=== PATIENT | female | born 1955 | race Caucasian/White ===

== ENCOUNTER 2021-07-15 10:37 | Emergency (ER) | payer SELFPAY ==
--- NOTE | 2021-07-15 11:31 | RAD REPORT ---
EXAM DESCRIPTION: USExtrem Venous W Compress Bil07/15/2021 11:24 am CLINICAL HISTORY: Leg swelling COMPARISON: none FINDINGS: The common femoral, superficial femoral, popliteal and posterior tibial veins bilaterally are compressible and demonstrate augmentation. Doppler demonstrates good flow. Grayscale, color and spectral analysis performed on all vessels IMPRESSION: No evidence of deep venous thrombosis involving either lower extremity.
--- NOTE | 2021-07-15 12:42 | ER ---
Nurse's Notes [facility] Name: Armando Camp Age: 65 yrs Sex: Female : 1955 Arrival Date: 07/15/2021 Time: 10:40 Bed 20 Private MD: Diagnosis: Edema, unspecified-Dependent edema Presentation: 07/15 10:52 Chief complaint: Patient states: "noticed JOAN leg swelling and redness for months" JOAN vg1 legs appears red, taut, and swollen. Coronavirus screen: Vaccine status: Patient reports receiving the 1st dose of the Covid vaccine. Client denies travel out of the [place] in the last 14 days. Ebola Screen: Patient denies exposure to infectious person. Patient denies travel to an Ebola-affected area in the 21 days before illness onset. Initial Sepsis Screen: Does the patient meet any 2 criteria? No. Patient's initial sepsis screen is negative. Does the patient have a suspected source of infection? No. Patient's initial sepsis screen is negative. Risk Assessment: Do you want to hurt yourself or someone else? Patient reports no desire to harm self or others. Onset of symptoms was April 2021. 10:52 Method Of Arrival: Ambulatory vg1 10:52 Acuity: DAVID 3 vg1 Triage Assessment: 10:57 General: Appears uncomfortable, Behavior is calm, cooperative. Pain: Complains of pain vg1 in right leg and left leg. Derm: Musculoskeletal: Circulation, motion, and sensation intact. Historical: - Allergies: 10:57 Cefadroxil; vg1 - Home Meds: 10:57 Insulin: Regular Sub-Q [Active]; losartan oral [Active]; Synthroid Oral [Active]; vg1 rosuvastatin oral [Active]; Bumetanide Oral [Active]; Glimepiride Oral [Active]; Aspirin Oral [Active]; Janumet oral [Active]; gabapentin oral [Active]; - PMHx: 10:57 Hypertensive disorder; Diabetes mellitus; Neuropathy; Hypercholesterolemia; vg1 - Immunization history:: Client reports receiving the Kevin \\T\\ Kevin single-dose vaccine. - Social history:: Smoking status: Patient reports the use of cigarette tobacco products, smokes two packs cigarettes per day. Screenin:28 Abuse screen: Denies threats or abuse. Nutritional screening: No deficits noted. ll1 Tuberculosis screening: No symptoms or risk factors identified. 12:58 Fall Risk Total Ervin Fall Scale indicates No Risk (0-24 pts). ll1 Assessment: 11:26 Reassessment: No changes from previously documented assessment. Patient and/or family ll1 updated on plan of care and expected duration. Pain level reassessed. Patient is alert, oriented x 3, equal unlabored respirations, skin warm/dry/pink. 11:28 Musculoskeletal: Circulation, motion, and sensation intact. Capillary refill < 3 ll1 seconds, Swelling present in right leg and left leg. 12:06 Reassessment: No changes from previously documented assessment. Patient and/or family ll1 updated on plan of care and expected duration. Pain level reassessed. Patient is alert, oriented x 3, equal unlabored respirations, skin warm/dry/pink. 12:45 Reassessment: No changes from previously documented assessment. Patient and/or family ll1 updated on plan of care and expected duration. Pain level reassessed. Patient is alert, oriented x 3, equal unlabored respirations, skin warm/dry/pink. Vital Signs: 10:52 BP 101 / 74; Pulse 66; Resp 18; Temp 98.5(TE); Pulse Ox 97% on R/A; Weight 104.33 kg; vg1 Height 5 ft. 9 in. (175.26 cm); Pain 5/10; 12:05 BP 102 / 47; Pulse 55; Resp 17; Pulse Ox 97% ; ll1 10:52 Body Mass Index 33.96 (104.33 kg, 175.26 cm) vg1 ED Course: 10:40 Patient arrived in ED. ds1 10:54 Shahbaz Schroeder NP is PHCP. pm1 10:54 Parker Trujillo MD is Attending Physician. pm1 10:57 Triage completed. vg1 10:57 Arm band placed on. vg1 11:20 Yogi Lora, MAXIMILIAN is Primary Nurse. ll1 11:26 Extrem Venous W Compression Joan US In Process Unspecified. EDMS 11:26 Patient placed in an exam room, on a stretcher. ll1 11:29 Patient has correct armband on for positive identification. Bed in low position. Call ll1 light in reach. Side rails up X 1. Cardiac monitoring not applicable on this patient. 12:45 No provider procedures requiring assistance completed. Patient did not have IV access ll1 during this emergency room visit. Administered Medications: No medications were administered Outcome: 12:42 Discharge ordered by MD. pm1 12:45 Patient left the ED. ll1 12:45 Discharged to home ambulatory. ll1 12:45 Condition: stable 12:45 Discharge instructions given to patient, Instructed on discharge instructions, follow up and referral plans. Demonstrated understanding of instructions, follow-up care. Signatures: Dispatcher [employer] [facility] Nadia Franco ds1 Shahbaz Schroeder NP MANGLE ROLLER pm1 Dyan Viveros, RN RN vg1 Yogi Lora RN RN ll1 Corrections: (The following items were deleted from the chart) 11:28 11:28 Musculoskeletal: Circulation, motion, and sensation intact. Capillary refill < 3 ll1 seconds, ll1
--- NOTE | 2021-07-15 12:42 | EDPHYS ---
Physician Documentation [facility] Name: Armando Camp Age: 65 yrs Sex: Female : 1955 Arrival Date: 07/15/2021 Time: 10:40 Bed 20 Private MD: ED Physician Parker Trujillo HPI: 07/15 11:04 This 65 yrs old Female presents to ER via Ambulatory with complaints of Leg Pain. pm1 11:04 The patient presents with pain, swelling. The complaints affect the right leg and left pm1 leg. Context: resulted from an unknown cause, the patient can fully bear weight, the patient is able to ambulate, can ambulate using a cane. Onset: The symptoms/episode began/occurred 5 month(s) ago. Modifying factors: The symptoms are alleviated by elevating leg, diuretics. Associated signs and symptoms: Pertinent negatives calf tenderness, fever. Treatment prior to arrival includes: no previous treatment. Severity of symptoms: in the emergency department the symptoms have improved. The patient has experienced similar episodes in the past, chronically, has been evaluated by PCP and referred to vascular for further evaluation and treatment. Vascular informed her 1 year ago that she has intermittent claudication that currently does not require intervention. The patient has not recently seen a physician. Historical: - Allergies: 10:57 Cefadroxil; vg1 - Home Meds: 10:57 Insulin: Regular Sub-Q [Active]; losartan oral [Active]; Synthroid Oral [Active]; vg1 rosuvastatin oral [Active]; Bumetanide Oral [Active]; Glimepiride Oral [Active]; Aspirin Oral [Active]; Janumet oral [Active]; gabapentin oral [Active]; - PMHx: 10:57 Hypertensive disorder; Diabetes mellitus; Neuropathy; Hypercholesterolemia; vg1 - Immunization history:: Client reports receiving the Kevin \T\ Kevin single-dose vaccine. - Social history:: Smoking status: Patient reports the use of cigarette tobacco products, smokes two packs cigarettes per day. ROS: 11:04 Constitutional: Negative for fever, chills, and weight loss, Cardiovascular: Negative pm1 for chest pain, palpitations, and edema, Respiratory: Negative for shortness of breath, cough, wheezing, and pleuritic chest pain, Skin: Negative for injury, rash, and discoloration. 11:04 MS/extremity: Positive for pain, swelling, of the right leg and left leg. 11:04 All other systems are negative. Exam: 11:04 Constitutional: This is a well developed, well nourished patient who is awake, alert, pm1 and in no acute distress. Head/Face: Normocephalic, atraumatic. 11:04 Cardiovascular: Exam negative for acute changes, Rate: normal, Rhythm: regular, Pulses: no pulse deficits are appreciated, Edema: 2+ edema to level of bilateral lower extremities below the knees. 11:04 Skin: Appearance: swelling, noted on the bilateral lower extremites below the knees, abscess, not appreciated, cellulitis, is not appreciated. 11:04 Neuro: Exam negative for acute changes, Orientation: is normal, Mentation: is normal, Motor: is normal, moves all fours. Vital Signs: 10:52 BP 101 / 74; Pulse 66; Resp 18; Temp 98.5(TE); Pulse Ox 97% on R/A; Weight 104.33 kg; vg1 Height 5 ft. 9 in. (175.26 cm); Pain 5/10; 12:05 BP 102 / 47; Pulse 55; Resp 17; Pulse Ox 97% ; ll1 10:52 Body Mass Index 33.96 (104.33 kg, 175.26 cm) vg1 MDM: 11:04 Patient medically screened. pm1 12:39 Data reviewed: vital signs. Data interpreted: Pulse oximetry: on room air is 97 %. pm1 Interpretation: normal. Counseling: I had a detailed discussion with the patient and/or guardian regarding: the historical points, exam findings, and any diagnostic results supporting the discharge/admit diagnosis, radiology results, the need for outpatient follow up, to return to the emergency department if symptoms worsen or persist or if there are any questions or concerns that arise at home. 12:40 ED course: Discussed lab work to rule out the presence of cellulitis but the patient pm1 refused. Patient's redness to legs has been present for 5-6 months and has been evaluated by her PCP who referred her to vascular surgery. Patient reports her redness and swelling have improved since yesterday. Patient is a smoker and I recommended smoking cessation. Patient appears to be developing lymphedema and has compression stockings but does not use them. Patient is taking diuretics and I recommend that she follow up with vascular surgery as recommended. 07/15 10:55 Order name: Extrem Venous W Compression [place] US; Complete Time: 11:38 pm1 Administered Medications: No medications were administered Disposition: 18:48 Co-signature as Attending Physician, Parker Trujillo MD. rn Disposition Summary: 07/15/21 12:42 Discharge Ordered Location: Home pm1 Problem: new pm1 Symptoms: have improved pm1 Condition: Stable pm1 Diagnosis - Edema, unspecified - Dependent edema pm1 Followup: pm1 - With: Emergency Department - When: As needed - Reason: Worsening of condition Followup: pm1 - With: Private Physician - When: 2 - 3 days - Reason: Recheck today's complaints, Continuance of care, Re-evaluation by your physician Discharge Instructions: - Discharge Summary Sheet pm1 - Peripheral Edema pm1 - Smoking Tobacco Information, Adult pm1 Forms: - Medication Reconciliation Form pm1 - Thank You Letter pm1 - Antibiotic Education pm1 - Prescription Opioid Use pm1 Signatures: Dispatcher [employer] EDMS Parker Trujillo MD MD rn Marinas, Patrick, NP TONGER pm1 Dyan Viveros, RN RN vg1
[2021-07-15 12:56] VITALS: TEMP 98.5; O2SAT 97
[2021-07-15 12:57] VITALS: BP 102/47
== END 2021-07-15 12:45 | disposition home or self-care (01) ==
LOC: ER 10:37
DX: R60.9 Edema, unspecified (principal); M79.605 Pain in left leg; M79.604 Pain in right leg; E11.9 Type 2 diabetes mellitus without complications; I10 Essential (primary) hypertension; F17.210 Nicotine dependence, cigarettes, uncomplicated; Z79.82 Long term (current) use of aspirin; Z79.4 Long term (current) use of insulin
CPT/HCPCS: 93970; 99283

== ENCOUNTER 2024-03-23 16:15 | Emergency (ER) | payer MEDICARE ==
--- OUTSIDE RECORDS SUMMARY | 2024-03-23 16:18 | XMS REPORT | Continuity of Care Document ---
Author Name Unknown Address [address] [place] [address] [address] [place] [address] [facility] Address [address] [facility]. [address] [place] [address] Care Team Providers Care Firewood Cutter Name Role Phone Reji Rankin Attending Clinician [phone] Payers Payer Name Policy Type Policy Number Effective Date Expirati on Date Source [facility] (MEDICARE REPLACEMENT HMO) [id number] 2022 00:00:00 Medications Ordered Medication Name Filled Medication Name Start Date Stop Date Current Medication? Ordering Clinician Indication Dosage Frequency Signature (SIG) Comments Components Source cyclobenzap rine hcl 10 mg tablet cyclobenzap rine hcl 10 mg tablet Yes [facility] timolol maleate 0.25 % solution timolol maleate 0.25 % solution Yes [facility] VRAYLAR 3 MG CAPSULE VRAYLAR 3 MG CAPSULE Yes [facility] omeprazole [address] omeprazole [address] Yes [facility] clopidogrel bisulfate 75 mg tablet clopidogrel bisulfate 75 mg tablet Yes [facility] OZEMPIC (0.25 OR 0.5 MG/DOSE) 2 MG/3ML SOLN PEN INJ OZEMPIC (0.25 OR 0.5 MG/DOSE) 2 MG/3ML SOLN PEN INJ Yes [facility] UNITHROID 150 MCG TABLET UNITHROID 150 MCG TABLET Yes [facility] glimepiride 4 mg tablet glimepiride 4 mg tablet Yes [facility] bumetanide 2 mg tablet bumetanide 2 mg tablet Yes [facility] LANTUS SOLOSTAR 100 UNIT/ML SOLN PEN INJ LANTUS SOLOSTAR 100 UNIT/ML SOLN PEN INJ Yes [facility] losartan potassium-h ctz 100-12.5 mg tablet losartan potassium-h ctz 100-12.5 mg tablet Yes [facility] rosuvastati n calcium 10 mg tablet rosuvastati n calcium 10 mg tablet Yes [facility] gabapentin 800 mg tablet gabapentin 800 mg tablet Yes [facility] Encounters Start Date/Time End Date/Time Encounter Type Admission Type Attending Clinicians Care Facility Care Department Encounter ID Source 2024-02-19 16:00:00 2024-02-19 17:00:00 Annual D2Me Reji Rankin [id number] CLACXAWKEA U24 [facility] 2022-11-28 00:00:00 2022-11-28 00:00:00 Outpatient DMG DMG [id number] [facility] 2022-08-01 15:17:25 2022-08-01 15:17:[address] [facility] [id number] Warner Melo 2022-07-24 14:53:30 2022-07-24 14:53:30 Outpatient [facility] [id number] Warner Melo 2022-05-02 14:37:15 2022-05-02 14:37:15 Outpatient [facility] [id number] Warner Cecile Melo 2022-02-05 10:39:53 2022-02-05 10:39:53 Outpatient [facility] [id number] Warner Melo Results Test Description Test Time Test Comments Results Result Co mments Source COMPREHENSIVE METABOLIC [id number] 16:24:09* Test Item Value Reference Range Interpretation Comme nts GLUCOSE (test code = 2217) 214 MG/DL 70-99 H BUN (test code = 2208) 13 MG/DL 8-23 CREATININE (test code = 2214) 0.67 MG/DL 0.60-1.30 eGFR (2020 CKD-EPI) (test code = 19428) 98 ML/MIN/1.73 >60 CALC BUN/CREAT (test code = 2235) 19 RATIO 6-28 SODIUM (test code = 2231) 139 MEQ/L 133-146 POTASSIUM (test code = 2228) 4.2 MEQ/L 3.5-5.4 CHLORIDE (test code = 2215) 98 MEQ/L 95-107 CARBON DIOXIDE (test code = 6) 25 MEQ/L 19-31 CALCIUM (test code = 2208) 9.4 MG/DL 8.5-10.5 PROTEIN, TOTAL (test code = 2228) 6.7 G/DL 6.1-8.3 ALBUMIN (test code = 1) 3.9 G/DL 3.5-5.2 CALC GLOBULIN (test code = 0) 2.8 G/DL 1.9-3.7 CALC A/G RATIO (test code = 2233) 1.4 RATIO 1.0-2.6 BILIRUBIN, TOTAL (test code = 2206) 0.9 MG/DL See_Comment [Automated me ssage] The system which generated this result transmitted reference range: <=1.2. The reference range was not used to interpret this result as normal/abnormal. ALKALINE PHOSPHATASE (test code = 2203) 90 U/L 40-140 AST (test code = 2217) 18 U/L 9-40 ALT (test code = 2218) 14 U/L 5-40 LIPID [id number] 16:24:09* Test Item Value Reference Range Interpretation Comme nts CHOLESTEROL (test code = 0) 114 MG/DL <200 TRIGLYCERIDES (test code = 2232) 161 MG/DL <150 H HDL CHOLESTEROL (test code = 0) 30 MG/DL >39 L CALC LDL CHOL (test code = 2236) 60 MG/DL <100 NOTE: CALCULATED LDL IS BASED ON EMMIE-GUZMAN METHOD WHICHINCLUDES ADJUSTABLE TRIGLYCERIDE:VLDL CHOLESTEROL RATIO.THIS FACTOR VARIES BY MEASURED TRIGLYCERIDE AND NON-HDLCHOLESTEROL CONCENTRATIONS WITH INCREASED CALCULATED LDL SEENIN HIGHER TRIGLYCERIDE OR LOWER NON-HDL SPECIMENS. FOR MOREINFORMATION, SEE CLIENT ANNOUNCEMENT AT [email or web address] RISK RATIO LDL/HDL (test code = 2238) 2.00 RATIO <3.22 HEMOGLOBIN [id number] 03:14:22* Test Item Value Reference Range Interpretation Comme nts HEMOGLOBIN A1c (test code = 48029) 11.4 % 4.2-5.6 H [employer] GUIDELINES FOR HGB A1C: PREDIABETES/INCREASED RISK . . . . . . . 5.7-6.4% DIAGNOSIS OF DIABETES . . . . . . . . . >=6.5% WITH CONFIRMATION OR APPROPRIATE SYMPTOMS NOTE: ASSAY MAY BE AFFECTED BY HEMOGLOBINOPATHIES (SICKLE CELL ANEMIA, S-C DISEASE, OTHERS) OR ARTIFICIALLY LOWERED BY DECREASED RED CELL SURVIVAL (HEMOLYTIC ANEMIAS, BLOOD LOSS, ETC.). CONSIDER ALTERNATE TESTING OR LABORATORY CONSULTATION. CBC W/AUTO DIFF WITH [id number] 02:53:58* Test Item Value Reference Range Interpretation Comme nts WBC (test code = 1001) 8.1 K/UL 3.5-11.0 RBC (test code = 1002) 5.19 M/UL 3.80-5.40 HEMOGLOBIN (test code = 1003) 16.6 G/DL 11.5-15.5 H HEMATOCRIT (test code = 1004) 47.3 % 34.0-45.0 H MCV (test code = 1005) 91.1 fL 80.0-99.0 MCH (test code = 1006) 32.0 PG 25.0-33.0 MCHC (test code = 1007) 35.1 G/DL 31.0-36.0 RDW (test code = 1038) 12.2 % 11.5-15.0 NEUTROPHILS (test code = 1008) 63.8 % LYMPHOCYTES (test code = 1010) 26.2 % MONOCYTES (test code = 1011) 6.7 % EOSINOPHILS (test code = 1012) 2.6 % BASOPHILS (test code = 1013) 0.5 % IMMATURE GRANULOCYTES (test code = 1036) 0.2 % NUCLEATED RBCS (test code = 1065) 0.0 /100 WBC'S See_Comment [Automated message] The system which generated this result transmitted reference range: 0.0. The reference range was not used to interpret this result as normal/abnormal. PLATELET COUNT (test code = 1015) 212 K/UL 130-400 ABSOLUTE NEUTROPHILS (test code = 1066) 5.15 K/UL 1.50-7.50 ABSOLUTE LYMPHOCYTES (test code = 1067) 2.12 K/UL 1.00-4.00 ABSOLUTE MONOCYTES (test code = 1068) 0.54 K/UL 0.20-1.00 ABSOLUTE EOSINOPHILS (test code = 1040) 0.21 K/UL 0.00-0.50 ABSOLUTE BASOPHILS (test code = 1069) 0.04 K/UL 0.00-0.20 ABS IMMATURE GRANULOCYTES (test code = 1020) 0.02 K/UL 0.00-0.10 ABS NUCLEATED RBCS (test code = 89376) 0.00 K/UL 0.00-0.11 UNLESS OTHER GODINEZ INDICATED, ALL TESTING PERFORMED AT [facility] [address] [place] [address] FORM TAMPER: MARGARET DEL VALLE M.D. [place] NUMBER [id number] [facility] [place]. [id number] LIPID [id number] 06:06:33* Test Item Value Reference Range Interpretation Comme nts CHOLESTEROL (test code = 2210) 125 MG/DL <200 TRIGLYCERIDES (test code = 2232) 283 MG/DL <150 H HDL CHOLESTEROL (test code = 2220) 29 MG/DL >39 L CALC LDL CHOL (test code = 2237) 63 MG/DL <100 NOTE: CALCULATED LDL IS BASED ON EMMIE-GUZMAN METHOD WHICHINCLUDES ADJUSTABLE TRIGLYCERIDE:VLDL CHOLESTEROL RATIO.THIS FACTOR VARIES BY MEASURED TRIGLYCERIDE AND NON-HDLCHOLESTEROL CONCENTRATIONS WITH INCREASED CALCULATED LDL SEENIN HIGHER TRIGLYCERIDE OR LOWER NON-HDL SPECIMENS. FOR MOREINFORMATION, SEE CLIENT ANNOUNCEMENT AT [email or web address] /[email or web address] RISK RATIO LDL/HDL (test code = 2238) 2.17 RATIO <3.22 COMPREHENSIVE METABOLIC [id number] 06:06:33* Test Item Value Reference Range Interpretation Comme nts GLUCOSE (test code = 2217) 344 MG/DL 70-99 H BUN (test code = 2208) 14 MG/DL 8-23 CREATININE (test code = 2214) 0.85 MG/DL 0.60-1.30 eGFR (2020 CKD-EPI) (test code = 90205) 76 ML/MIN/1.73 >60 CALC BUN/CREAT (test code = 2235) 16 RATIO 6-28 SODIUM (test code = 223) 135 MEQ/L 133-146 POTASSIUM (test code = 2228) 4.6 MEQ/L 3.5-5.4 CHLORIDE (test code = 2215) 94 MEQ/L 95-107 L CARBON DIOXIDE (test code = 2206) 26 MEQ/L 19-31 CALCIUM (test code = 220) 9.7 MG/DL 8.5-10.5 PROTEIN, TOTAL (test code = 222) 7.0 G/DL 6.1-8.3 ALBUMIN (test code = 2201) 3.9 G/DL 3.5-5.2 CALC GLOBULIN (test code = 2240) 3.1 G/DL 1.9-3.7 CALC A/G RATIO (test code = 2234) 1.3 RATIO 1.0-2.6 BILIRUBIN, TOTAL (test code = 2207) 0.5 MG/DL See_Comment [Automated me ssage] The system which generated this result transmitted reference range: <=1.2. The reference range was not used to interpret this result as normal/abnormal. ALKALINE PHOSPHATASE (test code = 2204) 97 U/L 40-140 AST (test code = 2218) 14 U/L 9-40 ALT (test code = 2219) 11 U/L 5-40 [facility] has important pathology staff changes effective 05/14/2022. New pathology staff will provide uninterrupted, excellent patient care and clinical consultation. See URL: [email or web address]. UNLESS OTHERWISE INDICATED, ALL TESTING PERFORMED AT [facility] [address] [place] [address] CLIA: [id number], CAP: [id number] HEMOGLOBIN [id number] 06:00:22* Test Item Value Reference Range Interpretation Comme nts HEMOGLOBIN A1c (test code = 43204) 12.4 % 4.2-5.6 H [employer] GUIDELINES FOR HGB A1C: PREDIABETES/INCREASED RISK . . . . . . . 5.7-6.4% DIAGNOSIS OF DIABETES . . . . . . . . . >=6.5% WITH CONFIRMATION OR APPROPRIATE SYMPTOMS NOTE: ASSAY MAY BE AFFECTED BY HEMOGLOBINOPATHIES (SICKLE CELL ANEMIA, S-C DISEASE, OTHERS) OR ARTIFICIALLY LOWERED BY DECREASED RED CELL SURVIVAL (HEMOLYTIC ANEMIAS, BLOOD LOSS, ETC.). CONSIDER ALTERNATE TESTING OR LABORATORY CONSULTATION. CULTURE, [id number] 10:26:02SPECIMEN NUMBER: [id number] CULTURE, ROUTINE SPECIMEN NUMBER: [id number] SPECIMEN COMMENT: UND SOURCE: UNDEFINED REPORT STATUS: FINAL DIRECT GRAM STAIN: NO WBCs SEEN FEW GRAM POSITIVE COCCI RARE GRAM POSITIVE BACILLI ISOLATE NUMBER 1: ORGANISM: 08/30/2021 FEW GRAM NEGATIVE BACILLI IDENTIFICATION: 08/31/2021 ENTEROBACTER CLOACAE ISOLATE NUMBER 2: ORGANISM: 08/30/2021 FEW GRAM NEGATIVE BACILLI IDENTIFICATION: 09/02/2021 CELESTINOA MIKY E. CLOACAE P. MIKY A MOXICILLIN/CA RESISTANT >16/8 SENSITIVE <=8/4AMPICILLIN RESISTANT >16 SENSITIVE <=8CEFAZOLIN SENSITIVE <=2CIPROFLOXACIN INTERMED 2 SENSITIVE <=1LEVOFLOXACIN RESISTANT >4 SENSITIVE <=2PIP/TAZOBAC SENSITIVE <=16 SENSITIVE <=16TETRACYCLINE RESISTANT >8 SENSITIVE <=4TOBRAMYCIN SENSITIVE <=4 SENSITIVE <=4TRIMETH/SULFA SENSITIVE <=2/38 SENSITIVE <=2/38 NOTE: NUMBERS DISPLAYED REPRESENT MINIMUM INHIBITORY CONCENTRATION (RICHARD) WHICH IS EXPRESSED IN MCG/ML.UNLESS OTHERWISE INDICATED, ALL TESTING PERFORMED [facility] [employer] [address] [place] [address] FORM TAMPER: BRENDA INFANTE M.D. CLIA NUMBER [id number] [facility] [place]. [id number] 04:13:55* Test Item Value Reference Range Interpretation Comme [facility] HEMOGLOBIN A1c (test code = 23109) 10.4 % 4.2-5.6 H [employer] GUIDELINES FOR HGB A1C: PREDIABETES/INCREASED RISK . . . . . . . 5.7-6.4% DIAGNOSIS OF DIABETES . . . . . . . . . >=6.5% WITH CONFIRMATION OR APPROPRIATE SYMPTOMS NOTE: ASSAY MAY BE AFFECTED BY HEMOGLOBINOPATHIES (SICKLE CELL ANEMIA, S-C DISEASE, OTHERS) OR ARTIFICIALLY LOWERED BY DECREASED RED CELL SURVIVAL (HEMOLYTIC ANEMIAS, BLOOD LOSS, ETC.). CONSIDER ALTERNATE TESTING OR LABORATORY CONSULTATION. UNLESS OTHERWISE INDICATED, ALL TESTING PERFORMED [facility] [employer]. [address] [place] [address] FORM TAMPER: BRENDA INFANTE M.D. CLIA NUMBER [id number] [place]. [id number] COMPREHENSIVE METABOLIC [id number] 04:03:03* Test Item Value Reference Range Interpretation Comme nts GLUCOSE (test code = 2217) 380 MG/DL 70-99 H BUN (test code = 2208) 26 MG/DL 8-23 H CREATININE (test code = 2213) 0.94 MG/DL 0.60-1.30 eGFR (2020 CKD-EPI) (test code = ) 68 ML/MIN/1.73 >60 CALC BUN/CREAT (test code = 2234) 28 RATIO 6-28 SODIUM (test code = 2230) 136 MEQ/L 133-146 POTASSIUM (test code = 2227) 3.7 MEQ/L 3.5-5.4 CHLORIDE (test code = 2214) 93 MEQ/L 95-107 L CARBON DIOXIDE (test code = 2205) 31 MEQ/L 19-31 CALCIUM (test code = 2208) 9.4 MG/DL 8.5-10.5 PROTEIN, TOTAL (test code = 2228) 7.1 G/DL 6.1-8.3 ALBUMIN (test code = 2200) 4.0 G/DL 3.5-5.2 CALC GLOBULIN (test code = 2239) 3.1 G/DL 1.9-3.7 CALC A/G RATIO (test code = 2233) 1.3 RATIO 1.0-2.6 BILIRUBIN, TOTAL (test code = 2206) 0.4 MG/DL See_Comment [Automated me ssage] The system which generated this result transmitted reference range: <=1.2. The reference range was not used to interpret this result as normal/abnormal. ALKALINE PHOSPHATASE (test code = 2203) 108 U/L 40-140 AST (test code = 2217) 18 U/L 9-40 ALT (test code = 2218) 15 U/L 5-40 LIPID [id number] 04:03:03* Test Item Value Reference Range Interpretation Comme nts CHOLESTEROL (test code = 2209) 111 MG/DL <200 TRIGLYCERIDES (test code = 2232) 246 MG/DL <150 H HDL CHOLESTEROL (test code = 2220) 26 MG/DL >39 L CALC LDL CHOL (test code = 7) 54 MG/DL <100 NOTE: CALCULATED LDL IS BASED ON EMMIE-GUZMAN METHOD WHICHINCLUDES ADJUSTABLE TRIGLYCERIDE:VLDL CHOLESTEROL RATIO.THIS FACTOR VARIES BY MEASURED TRIGLYCERIDE AND NON-HDLCHOLESTEROL CONCENTRATIONS WITH INCREASED CALCULATED LDL SEENIN HIGHER TRIGLYCERIDE OR LOWER NON-HDL SPECIMENS. FOR MOREINFORMATION, SEE CLIENT ANNOUNCEMENT AT [email or web address] RISK RATIO LDL/HDL (test code = 2238) 2.08 RATIO <3.22 CBC W/AUTO DIFF WITH [id number] 03:11:01* Test Item Value Reference Range Interpretation Comme nts WBC (test code = 1001) 8.8 K/UL 3.5-11.0 RBC (test code = 1002) 5.11 M/UL 3.80-5.40 HEMOGLOBIN (test code = 1003) 16.4 G/DL 11.5-15.5 H HEMATOCRIT (test code = 1004) 46.7 % 34.0-45.0 H MCV (test code = 1005) 91.4 fL 80.0-99.0 MCH (test code = 1006) 32.1 PG 25.0-33.0 MCHC (test code = 1007) 35.1 G/DL 31.0-36.0 RDW (test code = 1038) 12.2 % 11.5-15.0 NEUTROPHILS (test code = 1008) 67.3 % LYMPHOCYTES (test code = 1010) 21.9 % MONOCYTES (test code = 1011) 6.8 % EOSINOPHILS (test code = 1012) 2.9 % BASOPHILS (test code = 1013) 0.8 % IMMATURE GRANULOCYTES (test code = 1036) 0.3 % NUCLEATED RBCS (test code = 1065) 0.0 /100 WBC'S See_Comment [Automated [employer]] The system which generated this result transmitted reference range: 0.0. The reference range was not used to interpret this result as normal/abnormal. PLATELET COUNT (test code = 1015) 228 K/UL 130-400 ABSOLUTE NEUTROPHILS (test code = 1066) 5.90 K/UL 1.50-7.50 ABSOLUTE LYMPHOCYTES (test code = 1067) 1.92 K/UL 1.00-4.00 ABSOLUTE MONOCYTES (test code = 1068) 0.60 K/UL 0.20-1.00 ABSOLUTE EOSINOPHILS (test code = 1040) 0.25 K/UL 0.00-0.50 ABSOLUTE BASOPHILS (test code = 1069) 0.07 K/UL 0.00-0.20 ABS IMMATURE GRANULOCYTES (test code = 1020) 0.03 K/UL 0.00-0.10 ABS NUCLEATED RBCS (test code = 00348) 0.00 K/UL 0.00-0.11 TSH, THIRD [id number] 06:05:01* Test Item Value Reference Range Interpretation Comme nts TSH, THIRD GENERATION (test code = 2821) 2.330 UIU/ML 0.400-4.100 COMPREHENSIVE METABOLIC [id number] 04:24:18* Test Item Value Reference Range Interpretation Comme nts GLUCOSE (test code = 2217) 365 MG/DL 70-99 H BUN (test code = 8) 20 MG/DL 8-23 CREATININE (test code = 2214) 0.87 MG/DL 0.60-1.30 EFFECTIVE 02/25/2021, [facility] HAS IMPLEMENTED THE NKF-ASN RECOMMENDED KD-EPI EGFR REFIT CALCULATION THAT DOES NOT INCLUDE A COEFFICIENT FORRACE. FOR MORE INFORMATION, SEE ANNOUNCEMENT [email or web address] eGFR (2020 CKD-EPI) (test code = 00799) 75 ML/MIN/1.73 >60 CALC BUN/CREAT (test code = 223) 23 RATIO 6-28 SODIUM (test code = 223) 138 MEQ/L 133-146 POTASSIUM (test code = 2228) 4.6 MEQ/L 3.5-5.4 CHLORIDE (test code = 2215) 98 MEQ/L 95-107 CARBON DIOXIDE (test code = 2206) 29 MEQ/L 19-31 CALCIUM (test code = 2209) 9.4 MG/DL 8.5-10.5 PROTEIN, TOTAL (test code = 222) 6.4 G/DL 6.1-8.3 ALBUMIN (test code = 220) 3.7 G/DL 3.5-5.2 CALC GLOBULIN (test code = 2240) 2.7 G/DL 1.9-3.7 CALC A/G RATIO (test code = 223) 1.4 RATIO 1.0-2.6 BILIRUBIN, TOTAL (test code = 220) 0.3 MG/DL See_Comment [Automated me ssage] The system which generated this result transmitted reference range: <=1.2. The reference range was not used to interpret this result as normal/abnormal. ALKALINE PHOSPHATASE (test code = 220) 96 U/L 40-140 AST (test code = 2218) 18 U/L 9-40 ALT (test code = 2219) 13 U/L 5-40 LIPID [id number] 04:24:18* Test Item Value Reference Range Interpretation Comme nts CHOLESTEROL (test code = 2210) 108 MG/DL <200 TRIGLYCERIDES (test code = 2232) 340 MG/DL <150 H HDL CHOLESTEROL (test code = 2220) 23 MG/DL >39 L CALC LDL CHOL (test code = 2237) 49 MG/DL <100 NOTE: CALCULATED LDL IS BASED ON EMMIE-GUZMAN METHOD WHICHINCLUDES ADJUSTABLE TRIGLYCERIDE:VLDL CHOLESTEROL RATIO.THIS FACTOR VARIES BY MEASURED TRIGLYCERIDE AND NON-HDLCHOLESTEROL CONCENTRATIONS WITH INCREASED CALCULATED LDL SEENIN HIGHER TRIGLYCERIDE OR LOWER NON-HDL SPECIMENS. FOR MOREINFORMATION, SEE CLIENT ANNOUNCEMENT AT [email or web address]-C RISK RATIO LDL/HDL (test code = 2238) 2.13 RATIO <3.22 HEMOGLOBIN [id number] 04:23:31* Test Item Value Reference Range Interpretation Comme nts HEMOGLOBIN A1c (test code = 19498) 9.7 % 4.2-5.6 H [employer] GUIDELINES FOR HGB A1C: PREDIABETES/INCREASED RISK . . . . . . . 5.7-6.4% DIAGNOSIS OF DIABETES . . . . . . . . . >=6.5% WITH CONFIRMATION OR APPROPRIATE SYMPTOMS NOTE: ASSAY MAY BE AFFECTED BY HEMOGLOBINOPATHIES (SICKLE CELL ANEMIA, S-C DISEASE, OTHERS) OR ARTIFICIALLY LOWERED BY DECREASED RED CELL SURVIVAL (HEMOLYTIC ANEMIAS, BLOOD LOSS, ETC.). CONSIDER ALTERNATE TESTING OR LABORATORY CONSULTATION. ALBUMIN/CREATININE RATIO, URINE, [id number] 04:09:11* Test Item Value Reference Range Interpretation Comme nts CREATININE, URINE, CONC. (test code = 2072) 90.3 MG/DL NOT ESTAB Reference interv al for random urine samples has not been established. ALBUMIN, URINE, RANDOM (test code = 91262) 1.2 MG/DL Note: Test name is changed to Urine Albumin from Microalbumin in accordance with ADA and NKF Guidelines, and Albumin/Creatinine ratio reference interval reflects those Guidelines. Analytic methodology is unchanged. No reference interval for Random Urine Albumin is available. CALC ALBUMIN/CRETIN LONGORIA (test code = 93756) 13 MG/G <30 UNLESS OTHERWISE INDICATED, ALL TESTING PERFORMED [facility] [address] [place] [address] FORM TAMPER: BRENDA INFANTE M.D. CLIA NUMBER [id number] [facility] [place]. [id number] CBC W/AUTO DIFF WITH [id number] 02:55:52* Test Item Value Reference Range Interpretation Comme nts WBC (test code = 1001) 6.3 K/UL 3.5-11.0 RBC (test code = 1002) 4.73 M/UL 3.80-5.40 HEMOGLOBIN (test code = 1003) 15.5 G/DL 11.5-15.5 HEMATOCRIT (test code = 1004) 43.8 % 34.0-45.0 MCV (test code = 1005) 92.6 fL 80.0-99.0 MCH (test code = 1006) 32.8 PG 25.0-33.0 MCHC (test code = 1007) 35.4 G/DL 31.0-36.0 RDW (test code = 1038) 12.2 % 11.5-15.0 NEUTROPHILS (test code = 1008) 54.5 % NOTE: EFFECTIVE 02/04/2021, REFERENCE INTERVALS AND FLAGGING FORRELATIVE (%) WBC DIFFERENTIAL WILL BE ELIMINATED REDUNDANT TOABSOLUTE COUNTS.SEE [email or web address] te LYMPHOCYTES (test code = 1010) 30.7 % MONOCYTES (test code = 1011) 10.1 % EOSINOPHILS (test code = 1012) 3.4 % BASOPHILS (test code = 1013) 1.0 % IMMATURE GRANYLOCYTES (test code = 1036) 0.3 % NUCLEATED RBCS (test code = 1065) 0.0 /100 WBC'S See_Comment [Automated message] The system which generated this result transmitted reference range: 0.0. The reference range was not used to interpret this result as normal/abnormal. PLATELET COUNT (test code = 1015) 216 K/UL 130-400 ABSOLUTE NEUTROPHILS (test code = 1066) 3.42 K/UL 1.50-7.50 ABSOLUTE LYMPHOCYTES (test code = 1067) 1.92 K/UL 1.00-4.00 ABSOLUTE MONOCYTES (test code = 1068) 0.63 K/UL 0.20-1.00 ABSOLUTE EOSINOPHILS (test code = 1040) 0.21 K/UL 0.00-0.50 ABSOLUTE BASOPHILS (test code = 1069) 0.06 K/UL 0.00-0.20 ABS IMMATURE GRANULOCYTES (test code = 1020) 0.02 K/UL 0.00-0.10 ABS NUCLEATED RBCS (test code = 95111) 0.00 K/UL 0.00-0.11
--- NOTE | 2024-03-23 17:34 | ER ---
Nurse's Notes [facility] Name: Armando Camp Age: 68 yrs Sex: Female : 1955 Arrival Date: 03/23/2024 Time: 16:15 Bed IW8 Private MD: Diagnosis: Open wound of toe without damage to nail Presentation: 03/23 16:24 Chief complaint: Patient states: my PCP sent me here because I have a wound on my 2nd tm6 toe on the right foot. I am diabetic. Coronavirus screen: Client denies travel out of the [place] in the last 14 days. Ebola Screen: Patient negative for fever greater than or equal to 101.5 degrees Fahrenheit, and additional compatible Ebola Virus Disease symptoms Patient denies exposure to infectious person. Patient denies travel to an Ebola-affected area in the 21 days before illness onset. No symptoms or risks identified at this time. Initial Sepsis Screen: Does the patient meet any 2 criteria? No. Patient's initial sepsis screen is negative. Does the patient have a suspected source of infection? No. Patient's initial sepsis screen is negative. Risk Assessment: Do you want to hurt yourself or someone else? Patient reports no desire to harm self or others. Onset of symptoms was March 23, 2024. 16:24 Method Of Arrival: Ambulatory tm6 16:24 Acuity: DAVID 3 tm6 Triage Assessment: 16:25 General: Appears in no apparent distress. Behavior is calm, cooperative. Pain: tm6 Complains of pain in Right second toenail Pain currently is 0 out of 10 on a pain scale. at worst was 7 out of 10 on a pain scale. Quality of pain is described as sharp, Is intermittent. EENT: No signs and/or symptoms were reported regarding the EENT system. Neuro: Level of Consciousness is awake, alert, obeys commands, Oriented to person, place, time, situation. Cardiovascular: Patient's skin is warm and dry. Respiratory: Airway is patent Respiratory effort is even, unlabored, Respiratory pattern is regular, symmetrical. GI: No signs and/or symptoms were reported involving the gastrointestinal system. Abdomen is flat, non-distended. : No signs and/or symptoms were reported regarding the genitourinary system. Derm: Wound noted Right second toenail. Musculoskeletal: No signs and/or symptoms reported regarding the musculoskeletal system. Historical: - Allergies: 16:25 Cefadroxil; tm6 - PMHx: 16:25 diabetes mellitus; Hypercholesterolemia; Hypertensive disorder; neuropathy; tm6 - Immunization history:: Flu vaccine is not up to date. - Infectious Disease History:: Denies. - Social history:: Smoking status: Patient reports the use of cigarette tobacco products, smokes one pack cigarettes per day. Screenin:37 [facility] ED Fall Risk Assessment (Adult) History of falling in the last 3 months, bp including since admission No falls in past 3 months (0 pts) Confusion or Disorientation No (0 pts) Intoxicated or Sedated No (0 pts) Impaired Gait No (0 pts) Mobility Assist Device Used No (0 pt) Altered Elimination No (0 pt) Score/Fall Risk Level 0 - 2 = Low Risk Oriented to surroundings. Abuse screen: Denies threats or abuse. Denies injuries from another. Nutritional screening: No deficits noted. Tuberculosis screening: No symptoms or risk factors identified. Assessment: 17:14 Reassessment: called from lobby to room, no answer, do not see in lobby. tm6 17:29 Reassessment: called from lobby, no answer, do not see in lobby. tm6 Vital Signs: 16:24 Pulse 76; Resp 18; Temp 97.6(O); Pulse Ox 99% on R/A; tm6 16:24 BP 190 / 76; MAP 111 mmHg; tm6 ED Course: 16:20 Patient arrived in ED. ra3 16:21 Darlene Lyle FNP-C is [facility]. kb 16:21 Jovan Maher MD is Attending Physician. kb 16:25 Triage completed. tm6 16:25 Arm band placed on right wrist. tm6 17:07 Baylee Rios, RN is Primary Nurse. me1 17:37 Primary Nurse role handed off by Baylee Rios, MAXIMILIAN kb 17:37 Patient has correct armband on for positive identification. bp 17:37 No provider procedures requiring assistance completed. Patient did not have IV access bp during this emergency room visit. Administered Medications: No medications were administered Outcome: 17:34 Patient left the ED. bp 17:37 Discharged to home ambulatory, bp 17:37 Condition: stable 17:38 Discharge ordered by . kb 17:38 Patient left the ED. bp Signatures: Darlene Lyle, BIZTALK ADMINISTRATOR-C BIZTALK ADMINISTRATOR-Mickey Guthrie RN RN bp Baylee Rios, RN RN me1 Ellis Mansfield RN RN tm6 Johanna Rodrigez ra3 Corrections: (The following items were deleted from the chart) 17:08 16:24 Chief complaint: Patient states: my PCP sent me here because I have a wound on my me1 2nd toe on the right foot. I am diabetic tm6
[2024-03-23 17:38] VITALS: BP 190/76; TEMP 97.6; O2SAT 99
--- NOTE | 2024-03-23 17:39 | EDPHYS ---
Physician Documentation [facility] Name: Armando Camp Age: 68 yrs Sex: Female : 1955 Arrival Date: 03/23/2024 Time: 16:15 Bed IW8 Private MD: ED Physician Jovan Maher HPI: 03/23 18:46 This 68 yrs old Female presents to ER via Ambulatory with complaints of toe problem kb psbl infection. 18:46 Patient is a 68-year-old female who presents for wound to second toe on right foot that kb started about 2 weeks ago. Denies fever, drainage, swelling. States she had something similar on her left foot in the past and her daughter did wound care and it healed up. States PCP recommended she come to the ER for evaluation and x-ray.. Historical: - Allergies: 16:25 Cefadroxil; tm6 - PMHx: 16:25 diabetes mellitus; Hypercholesterolemia; Hypertensive disorder; neuropathy; tm6 - Immunization history:: Flu vaccine is not up to date. - Infectious Disease History:: Denies. - Social history:: Smoking status: Patient reports the use of cigarette tobacco products, smokes one pack cigarettes per day. ROS: 18:45 Constitutional: As per HPI kb Exam: 18:45 Constitutional: This is a well developed, well nourished patient who is awake, alert, kb and in no acute distress. Head/Face: Normocephalic, atraumatic. ENT: Moist Mucous membranes Cardiovascular: Regular rate Respiratory: Respirations even and unlabored. No increased work of breathing. Talking in full sentences MS/ Extremity: Pulses equal, no cyanosis. Neurovascular intact. Full, normal range of motion. Neuro: Awake and alert, GCS 15, oriented to person, place, time, and situation. 18:45 Skin: Wound to tip of second digit on right foot without erythema, warmth, drainage, swelling. Vital Signs: 16:24 Pulse 76; Resp 18; Temp 97.6(O); Pulse Ox 99% on R/A; tm6 16:24 BP 190 / 76; MAP 111 mmHg; tm6 MDM: 16:21 Medical Screening Exam initiated kb 18:45 Differential diagnosis: Osteomyelitis, nonhealing wound. Data reviewed: vital signs, kb nurses notes. ED course: Patient elected to leave from the lobby prior to diagnostic testing and results. 03/23 16:27 Order name: IV Start kb Administered Medications: No medications were administered Disposition Summary: 03/23/24 17:38 Discharge Ordered Notes: Location: Home kb Condition: Stable kb Diagnosis - Open wound of toe without damage to nail kb Followup: kb - With: Emergency Department - When: As needed - Reason: Worsening of condition Followup: kb - With: Private Physician - When: 2 - 3 days - Reason: Recheck today's complaints, Continuance of care, Re-evaluation by your physician Forms: - Medication Reconciliation Form kb - Antibiotic Education kb - Prescription Opioid Use kb - Patient Portal Instructions kb - Leadership Thank You Letter kb Signatures: Dispatcher [employer] EDDarlene Vasquez FNP-C YADI-Mickey Guthrie, RN RN bp Ellis Mansfield, RN RN tm6 Corrections: (The following items were deleted from the chart) 16:28 16:28 CBC+H.LAB.BRZ ordered. EDMS EDMS 16:28 16:28 COMPREHENSIVE METABOLIC PANEL+C.LAB.BRZ ordered. EDMS EDMS 16:28 16:28 Foot Right 3 View+RAD.RAD.BRZ ordered. EDMS EDMS 17:37 17:34 post triage evaluation and consult bp kb 17:37 17:34 unknown bp kb
== END 2024-03-23 17:38 | disposition home or self-care (01) ==
LOC: ER 16:15
DX: S91.104A Unspecified open wound of right lesser toe(s) without damage to nail, initial encounter (principal); F17.210 Nicotine dependence, cigarettes, uncomplicated
CPT/HCPCS: 99281